=== PATIENT | female | born 1985 | race Caucasian/White ===

== ENCOUNTER → 2017-04-10 | Emergency (ER) | payer OTHER ==
[~2017-04-10] VITALS: Ht 172.7 cm; Wt 98.0 kg
[~2017-04-10] MED LIST: BUDESONIDE0.5 MG/2 M IH; IBUPROFEN800 MG PO; IPRAT-ALBUT 0.5-3 ML IH; LEVOTHYROXINE50 MCG PO; LEVOXYL50 MCG; MEDROLPACK PO; MOTRIN800 MG PO; OMEPRAZOLE20 MG PO; PERIDEX480 ML MM; PRILOSEC20 MG PO; TUSSI PRES-B L120 M1 PO; ZITHROMAX TRI-500 MG PO; ZOFRAN4 MG PO
== END | disposition home or self-care (01) ==
LOC: ER 00:35
DX: J45.998 Other asthma (principal); J06.9 Acute upper respiratory infection, unspecified; R00.2 Palpitations

== ENCOUNTER → 2017-04-18 | Emergency (ER) | payer OTHER ==
[~2017-04-18] VITALS: Ht 170.2 cm; Wt 77.1 kg
[~2017-04-18] MED LIST changes: +CYCLOBENZAPRINE10 MG PO; +KETO10TA2 PO; +ORPHENADRINE C100 MG PO
== END | disposition home or self-care (01) ==
LOC: ER 01:35
DX: M94.0 Chondrocostal junction syndrome [Tietze] (principal)

== ENCOUNTER 2017-10-15 07:35 | Emergency (ER) | payer OTHER ==
[~2017-10-15] VITALS: Ht 172.7 cm; Wt 113.4 kg
== END 2017-10-15 11:30 | disposition home or self-care (01) ==
LOC: ER 07:35
DX: J22 Unspecified acute lower respiratory infection (principal)

== ENCOUNTER 2018-04-30 20:30 | Emergency (ER) | payer OTHER ==
[~2018-04-30] VITALS: Ht 167.6 cm; Wt 109.8 kg
== END 2018-04-30 22:43 | disposition home or self-care (01) ==
LOC: ER 20:30
DX: R63.0 Anorexia (principal)

== ENCOUNTER 2018-07-06 18:11 | Emergency (ER) | payer OTHER ==
[~2018-07-06] VITALS: Ht 172.7 cm; Wt 106.6 kg
[2018-07-06] MEDS ORDERED: PANADOL EXTRA500 MG (18:31)
== END 2018-07-06 22:39 | disposition home or self-care (01) ==
LOC: ER 18:11
DX: B34.9 Viral infection, unspecified (principal); E86.0 Dehydration; R50.9 Fever, unspecified

== ENCOUNTER 2018-07-09 09:27 | Emergency (ER) | payer OTHER ==
[~2018-07-09] VITALS: Ht 152.4 cm; Wt 108.9 kg
[~2018-07-09 09:27] MED LIST changes: +PANADOL EXTRA500 MG
[2018-07-09] MEDS ORDERED: ALBUTEROL1.25 MG/3 (10:43)
[2018-07-09] MEDS ORDERED: BUDEO.25 (10:43)
== END 2018-07-09 13:08 | disposition home or self-care (01) ==
LOC: ER 09:27
DX: J06.9 Acute upper respiratory infection, unspecified (principal)

== ENCOUNTER 2018-11-15 13:41 | Emergency (ER) | payer OTHER ==
[~2018-11-15] VITALS: Ht 172.7 cm; Wt 111.1 kg
[~2018-11-15 13:41] MED LIST changes: +ALBUTEROL1.25 MG/3; +BUDEO.25
== END 2018-11-15 18:05 | disposition home or self-care (01) ==
LOC: ER 13:41
DX: L02.224 Furuncle of groin (principal)

== ENCOUNTER 2019-02-13 09:49 | Emergency (ER) | payer OTHER ==
[~2019-02-13] VITALS: Ht 172.7 cm; Wt 108.9 kg
[2019-02-13] MEDS ORDERED: MEDROLPACK PO (12:10)
[2019-02-13] MEDS ORDERED: ZITHROMAX500 MG PO (12:10)
[2019-02-13] MEDS ORDERED: TUSSI PRES-B L480 ML PO (12:10)
== END 2019-02-13 12:47 | disposition home or self-care (01) ==
LOC: ER 09:49
DX: B33.8 Other specified viral diseases (principal); B96.0 Mycoplasma pneumoniae [M. pneumoniae] as the cause of diseases classified elsewhere

== ENCOUNTER 2020-04-01 12:38 | Emergency (ER) | payer OTHER ==
[~2020-04-01] VITALS: Ht 172.7 cm; Wt 86.2 kg
[~2020-04-01 12:38] MED LIST changes: +TUSSI PRES-B L480 ML PO; +ZITHROMAX500 MG PO
[2020-04-01] MEDS ORDERED: CIPRO500 MG PO (18:26)
== END 2020-04-01 18:53 | disposition home or self-care (01) ==
LOC: ER 12:38
DX: N20.0 Calculus of kidney (principal); N83.291 Other ovarian cyst, right side; R10.31 Right lower quadrant pain

== ENCOUNTER 2020-07-03 19:21 | Emergency (ER) | payer OTHER ==
[~2020-07-03] VITALS: Ht 172.7 cm; Wt 120.2 kg
[~2020-07-03 19:21] MED LIST changes: +CIPRO500 MG PO
[2020-07-03] MEDS ORDERED: NABUMETONE750 MG PO (23:23)
== END 2020-07-04 00:35 | disposition home or self-care (01) ==
LOC: ER 19:21
DX: N83.291 Other ovarian cyst, right side (principal); R10.2 Pelvic and perineal pain

== ENCOUNTER 2020-07-22 12:16 | Emergency (ER) | payer OTHER ==
[~2020-07-22] VITALS: Ht 172.7 cm; Wt 122.5 kg
[~2020-07-22 12:16] MED LIST changes: +NABUMETONE750 MG PO
== END 2020-07-22 13:45 | disposition home or self-care (01) ==
LOC: ER 12:16
DX: K13.79 Other lesions of oral mucosa (principal)

== ENCOUNTER 2020-10-07 17:35 | Emergency (ER) | payer OTHER ==
[~2020-10-07] VITALS: Ht 172.7 cm; Wt 127.0 kg
[2020-10-07] MEDS ORDERED: PERCOCET 5-3251 EACH PO (22:10)
== END 2020-10-07 22:22 | disposition home or self-care (01) ==
LOC: ER 17:35
DX: K08.89 Other specified disorders of teeth and supporting structures (principal)

== ENCOUNTER 2020-11-28 14:50 | Emergency (ER) | payer OTHER ==
[~2020-11-28] VITALS: Ht 172.7 cm; Wt 117.9 kg
[~2020-11-28 14:50] MED LIST changes: +PERCOCET 5-3251 EACH PO
[2020-11-28] MEDS ORDERED: BACTRIM DS TAB1 EACH PO (19:37)
== END 2020-11-28 20:05 | disposition home or self-care (01) ==
LOC: ER 14:50
DX: N39.0 Urinary tract infection, site not specified (principal); B96.29 Other Escherichia coli [E. coli] as the cause of diseases classified elsewhere

== ENCOUNTER 2021-01-17 16:37 | Emergency (ER) | payer OTHER ==
[~2021-01-17] VITALS: Ht 172.7 cm; Wt 117.9 kg
[~2021-01-17 16:37] MED LIST changes: +BACTRIM DS TAB1 EACH PO
[2021-01-17] MEDS ORDERED: NABUMETONE750 MG PO (18:29)
== END 2021-01-17 18:31 | disposition home or self-care (01) ==
LOC: ER 16:37
DX: M94.0 Chondrocostal junction syndrome [Tietze] (principal)

== ENCOUNTER 2021-02-01 22:38 | Emergency (ER) | payer OTHER ==
[~2021-02-01] VITALS: Ht 172.7 cm; Wt 129.3 kg
[2021-02-01] MEDS ORDERED: NAPROXEN SODIU275 MG PO (23:44)
== END 2021-02-02 01:01 | disposition home or self-care (01) ==
LOC: ER 22:38
DX: M25.562 Pain in left knee (principal); M19.90 Unspecified osteoarthritis, unspecified site

== ENCOUNTER 2021-02-17 11:52 | Emergency (ER) | payer OTHER ==
[~2021-02-17] VITALS: Ht 172.7 cm; Wt 129.3 kg
[~2021-02-17 11:52] MED LIST changes: +NAPROXEN SODIU275 MG PO
[2021-02-17] MEDS ORDERED: PEPCID AC20 MG PO (16:53)
[2021-02-17] MEDS ORDERED: INTESTINEX680 M1 PO (16:53)
== END 2021-02-17 18:01 ==
LOC: ER 11:52
DX: K52.89 Other specified noninfective gastroenteritis and colitis (principal); E86.0 Dehydration; Z20.822 Contact with and (suspected) exposure to COVID-19

== ENCOUNTER 2021-03-31 16:35 | Emergency (ER) | payer OTHER ==
[~2021-03-31] VITALS: Ht 172.7 cm; Wt 127.0 kg
[~2021-03-31 16:35] MED LIST changes: +INTESTINEX680 M1 PO; +PEPCID AC20 MG PO
[2021-03-31] MEDS ORDERED: BUTALB-ACETAMI1 EAC2 PO (18:22)
== END 2021-03-31 18:31 | disposition home or self-care (01) ==
LOC: ER 16:35
DX: R51.9 Headache, unspecified (principal)

== ENCOUNTER 2021-05-27 23:32 | Emergency (ER) | payer OTHER ==
[~2021-05-27] VITALS: Ht 172.7 cm; Wt 122.5 kg
[~2021-05-27 23:32] MED LIST changes: +BUTALB-ACETAMI1 EAC2 PO
[2021-05-28] MEDS ORDERED: ZOFRAN8 MG PO (07:39)
[2021-05-28] MEDS ORDERED: PEPCID40 MG PO (07:39)
== END 2021-05-28 07:42 ==
LOC: ER 23:32
DX: R11.10 Vomiting, unspecified (principal)

== ENCOUNTER 2021-06-18 11:57 | Emergency (ER) | payer OTHER ==
[~2021-06-18] VITALS: Ht 172.7 cm; Wt 122.5 kg
[~2021-06-18 11:57] MED LIST changes: +PEPCID40 MG PO; +ZOFRAN8 MG PO
[2021-06-18] MEDS ORDERED: PEPCID AC20 MG PO (17:59)
[2021-06-18] MEDS ORDERED: CARAFATE1 GM PO (17:59)
== END 2021-06-18 18:35 | disposition home or self-care (01) ==
LOC: ER 11:57
DX: R10.84 Generalized abdominal pain (principal); I10 Essential (primary) hypertension; Z72.0 Tobacco use

== ENCOUNTER 2021-10-21 10:17 | Emergency (ER) | payer OTHER | END 2021-10-21 13:35 | disposition home or self-care (01) | LOC: ER 10:17 | DX: G43.909 Migraine, unspecified, not intractable, without status migrainosus (principal); M62.838 Other muscle spasm ==

== ENCOUNTER 2021-10-23 12:28 | Emergency (ER) | payer OTHER ==
[~2021-10-23] VITALS: Ht 172.7 cm; Wt 122.9 kg
[~2021-10-23 12:28] MED LIST changes: +BENADRYL25 MG PO; +CARAFATE1 GM PO
== END 2021-10-23 16:13 | disposition home or self-care (01) ==
LOC: ER 12:28
DX: J22 Unspecified acute lower respiratory infection (principal); B34.9 Viral infection, unspecified; Z20.822 Contact with and (suspected) exposure to COVID-19

== ENCOUNTER → 2022-03-19 | Emergency (ER) | payer OTHER ==
[~2022-03-19] VITALS: Ht 160 cm; Wt 127.0 kg
== END | disposition home or self-care (01) ==
LOC: ER 14:43
DX: G43.909 Migraine, unspecified, not intractable, without status migrainosus (principal); F45.41 Pain disorder exclusively related to psychological factors; Z20.822 Contact with and (suspected) exposure to COVID-19

== ENCOUNTER 2022-08-10 08:50 | Emergency (ER) | payer OTHER ==
[~2022-08-10] VITALS: Ht 172.7 cm; Wt 128.4 kg
== END 2022-08-10 14:11 | disposition home or self-care (01) ==
LOC: ER 08:50
DX: K52.9 Noninfective gastroenteritis and colitis, unspecified (principal); N39.0 Urinary tract infection, site not specified; Z20.822 Contact with and (suspected) exposure to COVID-19; E07.89 Other specified disorders of thyroid

== ENCOUNTER → 2022-10-24 | Emergency (ER) | payer OTHER ==
[~2022-10-24] VITALS: Ht 172.7 cm; Wt 127.0 kg
== END | disposition home or self-care (01) ==
LOC: ER 15:36
DX: K29.70 Gastritis, unspecified, without bleeding (principal); F41.9 Anxiety disorder, unspecified

== ENCOUNTER 2022-10-29 16:18 | Emergency (ER) | payer OTHER ==
[~2022-10-29] VITALS: Ht 172.7 cm; Wt 127.0 kg
[2022-10-29] MEDS ORDERED: ADVIL DUAL ACT1 EACH PO (18:46)
[2022-10-29] MEDS ORDERED: METAXALONE800 MG PO (18:46)
== END 2022-10-29 18:50 | disposition home or self-care (01) ==
LOC: ER 16:18
DX: M94.0 Chondrocostal junction syndrome [Tietze] (principal); E03.8 Other specified hypothyroidism

== ENCOUNTER 2022-12-01 14:52 | Emergency (ER) | payer OTHER ==
[~2022-12-01] VITALS: Ht 172.7 cm; Wt 127.0 kg
[~2022-12-01 14:52] MED LIST changes: +ADVIL DUAL ACT1 EACH PO; +METAXALONE800 MG PO
[2022-12-01 16:41] LABS: HEMATOCRIT 33.1 % (36.0-45.00); HEMOGLOBIN 11.3 g/dL (12.0-15.00); MEAN CELL VOLUME 77.4 fL (80.00-100.00); MEAN CORPUSCULAR HEMOGLOBIN 26.4 pg (27.00-32.0); MEAN CORPUSCULAR HGB CONC 34.1 g/dl (32.0-36.0); PLATELET COUNT 318 K/uL (150-450); RED BLOOD COUNT 4.27 M/uL (4.00-6.00)
[2022-12-01 17:08] LABS: ALBUMIN 3.5 gm/dL (3.4-5.0); BILIRUBIN TOTAL 0.52 mg/dL (0.3-1.2); CALCIUM 8.6 mg/dL (8.5-10.1); CREATININE SERUM 0.8 mg/dL (0.55-1.02); GFR 80.71; GLOBULINA 3.8 G/DL (2.4-3.5); POTASSIUM 3.25 mEq/L (3.5-5.1); TOTAL PROTEIN 7.3 gm/dL (6.4-8.2)
== END 2022-12-01 21:18 | disposition home or self-care (01) ==
LOC: ER 14:52
PROVIDERS: General Practice
DX: K52.9 Noninfective gastroenteritis and colitis, unspecified (principal)

== ENCOUNTER 2022-12-11 21:45 | Emergency (ER) | payer OTHER ==
[~2022-12-11] VITALS: Ht 172.7 cm; Wt 131.5 kg
[2022-12-11] MEDS ORDERED: CIPRO500 MG PO (22:46)
== END 2022-12-11 22:49 | disposition home or self-care (01) ==
LOC: ER 21:45
DX: S61.213A Laceration without foreign body of left middle finger without damage to nail, initial encounter (principal); W26.0XXA Contact with knife, initial encounter; Y93.G3 Activity, cooking and baking; Y92.9 Unspecified place or not applicable; Y99.9 Unspecified external cause status

== ENCOUNTER 2023-02-11 12:54 | Emergency (ER) | payer OTHER ==
[~2023-02-11] VITALS: Ht 172.7 cm; Wt 131.5 kg
== END 2023-02-11 14:17 | disposition home or self-care (01) ==
LOC: ER 12:55
DX: G43.809 Other migraine, not intractable, without status migrainosus (principal)

== ENCOUNTER 2023-04-19 11:50 | Emergency (ER) | payer OTHER ==
[~2023-04-19] VITALS: Ht 172.7 cm; Wt 131.5 kg
[2023-04-19] MEDS ORDERED: GENTAMICIN SULFATE 0.15 MG/DR DROPS 5ML OP STA (13:53)
[2023-04-19] MEDS ORDERED: GUAIFENESIN 200 MG/10 ML BLIST.PACK PO STA (14:03)
== END 2023-04-19 15:30 | disposition home or self-care (01) ==
LOC: ER 11:50
DX: R05.9 Cough, unspecified (principal); Z20.822 Contact with and (suspected) exposure to COVID-19

== ENCOUNTER 2023-09-01 12:49 | Emergency (ER) | payer OTHER ==
[~2023-09-01] VITALS: Ht 172.7 cm; Wt 136.1 kg
[2023-09-01] MEDS ORDERED: hydrOXYzine PAMOATE 50 MG CAPSULE PO ONE (15:00)
[2023-09-01] MEDS ORDERED: VISTARIL25 MG PO ×2 (16:01→16:02)
== END 2023-09-01 16:31 ==
LOC: ER 12:49
DX: F41.9 Anxiety disorder, unspecified (principal); E03.9 Hypothyroidism, unspecified; Z88.8 Allergy status to other drugs, medicaments and biological substances; Z87.09 Personal history of other diseases of the respiratory system; R00.2 Palpitations

== ENCOUNTER 2023-11-23 12:08 | Emergency (ER) | payer OTHER ==
[~2023-11-23] VITALS: Ht 172.7 cm; Wt 140.6 kg
[~2023-11-23 12:08] MED LIST changes: +VISTARIL25 MG PO
[2023-11-23] MEDS ORDERED: KETOROLAC TROMETHAMINE 60 MG VIAL IM STA (13:45)
== END 2023-11-23 15:27 | disposition home or self-care (01) ==
LOC: ER 12:10
DX: M25.562 Pain in left knee (principal); M25.561 Pain in right knee; W18.30XA Fall on same level, unspecified, initial encounter; Y93.9 Activity, unspecified; Y92.9 Unspecified place or not applicable; Y99.9 Unspecified external cause status

== ENCOUNTER 2023-12-09 23:40 | Emergency (ER) | payer OTHER ==
[~2023-12-09] VITALS: Ht 172.7 cm; Wt 140.6 kg
[2023-12-10] MEDS ORDERED: HALOPERIDOL LACTATE 5 MG/ML AMPUL IM STA (01:11)
[2023-12-10] MEDS ORDERED: KETOROLAC TROMETHAMINE 30 MG VIAL IV STA (01:11)
[2023-12-10] MEDS ORDERED: DIPHENHYDRAMINE HCL 50 MG/ML VIAL 1ML IM STA (01:12)
== END 2023-12-10 02:02 | disposition home or self-care (01) ==
LOC: ER 23:42
DX: G43.829 Menstrual migraine, not intractable, without status migrainosus (principal); Z88.8 Allergy status to other drugs, medicaments and biological substances

== ENCOUNTER 2023-12-25 13:42 | Emergency (ER) | payer OTHER ==
[~2023-12-25] VITALS: Ht 172.7 cm; Wt 140.6 kg
[2023-12-25] MEDS ORDERED: ONDANSETRON HCL 2 MG/ML VIAL IV ONE (14:45)
[2023-12-25] MEDS ORDERED: LACTOBACILLUS ACIDOPHILUS 1 CAP CAP PO ONE (14:45)
[2023-12-25] MEDS ORDERED: 0.9 % SODIUM CHLORIDE 500 ML IV ONE (14:45)
[2023-12-25] MEDS ORDERED: FAMOTIDINE/PF 20 MG/2 ML VIAL IV ONE (14:45)
[2023-12-25] MEDS ORDERED: ACETAMINOPHEN 500 MG GEL..CAP PO ONE (14:45)
[2023-12-25 15:37] LABS: URINE APPEARANCE Clear; URINE BILIRRUBIN Negative (NEGATIVE); URINE BLOOD Negative; URINE COLOR Yellow; URINE GLUCOSE Negative (NEGATIVE); URINE KETONE Negative (NEGATIVE); URINE LEUKOCYTE Trace; URINE NITRATE Negative; URINE PROTEIN Negative (NEGATIVE); URINE UROBILINOGEN 0.2 E.U./dl
[2023-12-25 15:41] LABS: URINE BACTERIA 2174.4 uL (0.0-1933); URINE EPITHELIAL CELLS 34.3 uL (0.0-38.8); URINE RBC 2.2 uL (0.0-20.8); URINE WBC 21.4 uL (0.0-23.2)
[2023-12-25 15:51] LABS: HEMATOCRIT 35.1 % (36.0-45.00); HEMOGLOBIN 11.5 g/dL (12.0-15.00); MEAN CELL VOLUME 75.5 fL (80.00-100.00); MEAN CORPUSCULAR HEMOGLOBIN 24.7 pg (27.00-32.0); MEAN CORPUSCULAR HGB CONC 32.7 g/dl (32.0-36.0); PLATELET COUNT 344 K/uL (150-450); RED BLOOD COUNT 4.64 M/uL (4.00-6.00); RED CELL DISTRIBUTION WIDTH 16.5 % (11.5-14.5)
[2023-12-25 16:05] LABS: ALBUMIN 3.8 gm/dL (3.4-5.0); BILIRUBIN TOTAL 0.42 mg/dL (0.3-1.2); CALCIUM 8.9 mg/dL (8.5-10.1); CREATININE SERUM 0.72 mg/dL (0.55-1.02); GFR 90.65; GLOBULINA 4.1 G/DL (2.4-3.5); POTASSIUM 3.92 mEq/L (3.5-5.1); TOTAL PROTEIN 7.9 gm/dL (6.4-8.2)
[2023-12-25] MEDS ORDERED: PIPERACILLIN/TAZOBACTAM SODIUM 3.375 GM VIAL IV ONE (21:15)
[2023-12-25] MEDS ORDERED: LEVSIN0.125 MG PO (21:24)
[2023-12-25] MEDS ORDERED: PROTONIX20 MG PO (21:24)
[2023-12-25] MEDS ORDERED: INTESTINEX680 M1 PO (21:24)
[2023-12-25] MEDS ORDERED: METRONIDAZOLE500 MG PO (21:33)
== END 2023-12-25 23:50 | disposition home or self-care (01) ==
LOC: ER 13:43
PROVIDERS: Nurse Practitioner Family
DX: K52.9 Noninfective gastroenteritis and colitis, unspecified (principal); R10.2 Pelvic and perineal pain; E03.8 Other specified hypothyroidism; Z88.1 Allergy status to other antibiotic agents
CPT/HCPCS: 36415; 74177; Q9965

== ENCOUNTER 2024-02-16 23:22 | Emergency (ER) | payer OTHER ==
[~2024-02-16] VITALS: Ht 170.2 cm; Wt 127.0 kg
[~2024-02-16 23:22] MED LIST changes: +LEVSIN0.125 MG PO; +METRONIDAZOLE500 MG PO; +PROTONIX20 MG PO
[2024-02-17] MEDS ORDERED: KETOROLAC TROMETHAMINE 60 MG VIAL IM STA (00:50)
[2024-02-17] MEDS ORDERED: DOLOGESIC-DF 51 EACH PO (03:03)
[2024-02-17] MEDS ORDERED: ZYNCOF 20-400120 ML PO (03:03)
[2024-02-17] MEDS ORDERED: PHENAGIL TABLE1 EACH PO (03:03)
== END 2024-02-17 03:22 | disposition home or self-care (01) ==
LOC: ER 23:25
DX: J06.9 Acute upper respiratory infection, unspecified (principal); M94.0 Chondrocostal junction syndrome [Tietze]; Z88.8 Allergy status to other drugs, medicaments and biological substances; Z20.822 Contact with and (suspected) exposure to COVID-19

== ENCOUNTER 2024-05-12 11:22 | Emergency (ER) | payer OTHER ==
[~2024-05-12] VITALS: Ht 172.7 cm; Wt 136.1 kg
[~2024-05-12 11:22] MED LIST changes: +DOLOGESIC-DF 51 EACH PO; +PHENAGIL TABLE1 EACH PO; +ZYNCOF 20-400120 ML PO
[2024-05-12] MEDS ORDERED: 0.9 % SODIUM CHLORIDE 1,000 ML IV STA (12:02)
[2024-05-12 13:23] LABS: HEMATOCRIT 35.7 % (36.0-45.00); HEMOGLOBIN 11.6 g/dL (12.0-15.00); MEAN CELL VOLUME 74.7 fL (80.00-100.00); MEAN CORPUSCULAR HEMOGLOBIN 24.3 pg (27.00-32.0); MEAN CORPUSCULAR HGB CONC 32.6 g/dl (32.0-36.0); PLATELET COUNT 379 K/uL (150-450); RED BLOOD COUNT 4.78 M/uL (4.00-6.00); RED CELL DISTRIBUTION WIDTH 16.4 % (11.5-14.5)
[2024-05-12 14:07] LABS: CALCIUM 9.3 mg/dL (8.5-10.1); CREATININE SERUM 0.64 mg/dL (0.55-1.02); GFR 103.85; POTASSIUM 4.12 mEq/L (3.5-5.1)
[2024-05-12 15:23] LABS: URINE APPEARANCE Clear; URINE BILIRRUBIN Negative (NEGATIVE); URINE BLOOD Negative; URINE COLOR Yellow; URINE GLUCOSE Negative (NEGATIVE); URINE KETONE Negative (NEGATIVE); URINE LEUKOCYTE Negative; URINE NITRATE Negative; URINE PROTEIN Negative (NEGATIVE); URINE UROBILINOGEN 0.2 E.U./dl
[2024-05-12 15:28] LABS: URINE BACTERIA 6051.2 uL (0.0-1933); URINE EPITHELIAL CELLS 67.7 uL (0.0-38.8); URINE RBC 6.1 uL (0.0-20.8); URINE WBC 38.6 uL (0.0-23.2)
[2024-05-12 15:35] LABS: URINE CAST 0.58 uL (0.0-1.40)
[2024-05-12] MEDS ORDERED: ANALPRAM HC 2.530 GM RECTAL (17:40)
== END 2024-05-12 17:49 | disposition home or self-care (01) ==
LOC: ER 11:25
PROVIDERS: Emergency Medicine
DX: K64.9 Unspecified hemorrhoids (principal); Z88.1 Allergy status to other antibiotic agents
CPT/HCPCS: 36415; 74177; Q9965

== ENCOUNTER 2024-10-16 16:14 | Emergency (ER) | payer OTHER ==
[~2024-10-16] VITALS: Ht 172.7 cm; Wt 117.9 kg
[~2024-10-16 16:14] MED LIST changes: +ANALPRAM HC 2.530 GM RECTAL
[2024-10-16] MEDS ORDERED: KETOROLAC TROMETHAMINE 15 MG VIAL IV STA (18:45)
[2024-10-16] MEDS ORDERED: ONDANSETRON HCL 2 MG/ML VIAL IV STA (18:45)
[2024-10-16] MEDS ORDERED: SODIUM CHLORIDE 0.45 % 1,000 ML IV STA (18:49)
[2024-10-16] MEDS ORDERED: FAMOTIDINE/PF 20 MG/2 ML VIAL IV PUSH STA (18:49)
[2024-10-16 19:44] LABS: BASO % 0.7 % (0.1-1.2); EOS # 0.19 (0.04-0.54); EOS % 2.1 % (0.7-7.0); LYMPH # 3.43 (1.18-3.74); LYMPH % 38.4 % (19.3-53.1); MEAN PLATELET VOLUME 9.20 fl (9.4-12.4); MONO # 0.63 (0.24-0.82); MONO % 7.1 % (4.7-12.5); NEUT # 4.59 (1.56-6.13); NEUT % 51.4 % (34.0-71.1); RED CELL DISTRIBUTION WIDTH 15.3 % (11.6-14.4)
[2024-10-16 20:13] LABS: BUN CREA RATIO 17.0 (7.0-25.0); CREATININE SERUM 0.53 mg/dL (0.55-1.02); GFR 128.42; GLUCOSE FASTING 87.0 mg/dL (65-100); OSMOLALITY SERUM 279.0 MOSM/KG (275-295)
== END 2024-10-16 21:55 | disposition home or self-care (01) ==
LOC: ER 16:14
PROVIDERS: Emergency Medicine
DX: G43.909 Migraine, unspecified, not intractable, without status migrainosus (principal); Z88.8 Allergy status to other drugs, medicaments and biological substances

== ENCOUNTER 2024-12-12 03:33 | Emergency (ER) | payer OTHER ==
[~2024-12-12] VITALS: Ht 165.1 cm; Wt 136.1 kg
[2024-12-12] MEDS ORDERED: CEFTRIAXONE SODIUM 1,000 MG VIAL IV ONE (03:45)
[2024-12-12] MEDS ORDERED: FAMOtidine 10 MG/ML (4ML VIAL) IV ONE (03:45)
[2024-12-12] MEDS ORDERED: ONDANSETRON HCL 2 MG/ML VIAL IV ONE (03:45)
[2024-12-12] MEDS ORDERED: KETOROLAC TROMETHAMINE 30 MG VIAL ONE ×2 (03:55→09:54)
[2024-12-12] MEDS ORDERED: TAMSULOSIN HCL 0.4 MG CAP PO ONE ×2 (03:55→04:00)
[2024-12-12] MEDS ORDERED: ONDANSETRON HCL 2 MG/ML VIAL ONE (03:55)
[2024-12-12] MEDS ORDERED: CEFTRIAXONE SODIUM 1,000 MG VIAL ONE (03:56)
[2024-12-12] MEDS ORDERED: FAMOTIDINE/PF 20 MG/2 ML VIAL ONE (03:56)
[2024-12-12] MEDS ORDERED: 0.9 % SODIUM CHLORIDE 1,000 ML IV ONE (04:00)
[2024-12-12] MEDS ORDERED: KETOROLAC TROMETHAMINE 30 MG VIAL IV ONE (04:00)
[2024-12-12 04:29] LABS: BASO % 0.7 % (0.1-1.2); EOS # 0.16 (0.04-0.54); EOS % 1.6 % (0.7-7.0); LYMPH # 3.16 (1.18-3.74); LYMPH % 31.6 % (19.3-53.1); MEAN PLATELET VOLUME 9.70 fl (9.4-12.4); MONO # 0.83 (0.24-0.82); MONO % 8.3 % (4.7-12.5); NEUT # 5.76 (1.56-6.13); NEUT % 57.6 % (34.0-71.1); RED CELL DISTRIBUTION WIDTH 15.7 % (11.6-14.4)
[2024-12-12 04:43] LABS: INR 0.98
[2024-12-12 04:50] LABS: ALT/SGPT 21 U/L (12-78); AST/SGOT 18 U/L (15-37); BILIRUBIN TOTAL 0.32 mg/dL (0.3-1.2); BUN CREA RATIO 14 (7.0-25.0); CREATININE SERUM 0.93 mg/dL (0.55-1.02); GFR 67.12; GLOBULINA 3.1 G/DL (2.4-3.5); GLUCOSE FASTING 168 mg/dL (65-100); OSMOLALITY SERUM 287 MOSM/KG (275-295)
[2024-12-12 04:51] LABS: HCG QUANTITATIVE < 1 mUI/mL (1-3)
[2024-12-12 07:34] VITALS: BP 136/75; O2SAT 100
[2024-12-12] MEDS ORDERED: KETO10TA2 PO (09:34)
[2024-12-12] MEDS ORDERED: TAMS0.4C PO (09:34)
[2024-12-12] MEDS ORDERED: MACROBID 100 M100 MG PO (09:34)
[2024-12-12] MEDS ORDERED: PYRIDIUM200 MG PO (09:34)
[2024-12-12] MEDS ORDERED: KETOROLAC TROMETHAMINE 15 MG VIAL IV ONE (10:00)
== END 2024-12-12 10:09 | disposition home or self-care (01) ==
LOC: ER 03:33
PROVIDERS: General Practice
DX: R10.A2 Flank pain, left side (principal); E03.8 Other specified hypothyroidism; E11.9 Type 2 diabetes mellitus without complications; Z88.1 Allergy status to other antibiotic agents; J45.909 Unspecified asthma, uncomplicated

== ENCOUNTER 2025-02-04 08:00 | Emergency (ER) | payer OTHER ==
[~2025-02-04] VITALS: Ht 172.7 cm; Wt 127.0 kg
[~2025-02-04 08:00] MED LIST changes: +MACROBID 100 M100 MG PO; +PYRIDIUM200 MG PO; +TAMS0.4C PO
[2025-02-04] MEDS ORDERED: ORPHENADRINE CITRATE 30 MG/ML AMPUL IM ONE (08:30)
[2025-02-04] MEDS ORDERED: DEXAMETHASONE SODIUM PHOSPHATE 4 MG/ML VIAL IM ONE (08:30)
[2025-02-04] MEDS ORDERED: KETOROLAC TROMETHAMINE 30 MG VIAL IM ONE (08:30)
[2025-02-04] MEDS ORDERED: KETOROLAC TROMETHAMINE 30 MG VIAL ONE (08:33)
[2025-02-04] MEDS ORDERED: ORPHENADRINE CITRATE 30 MG/ML AMPUL ONE (08:33)
[2025-02-04] MEDS ORDERED: DEXAMETHASONE SODIUM PHOSPHATE 4 MG/ML VIAL ONE (08:34)
[2025-02-04] MEDS ORDERED: LIDODERM1 EACH TOP (10:05)
[2025-02-04] MEDS ORDERED: NORFLEX100MG PO (10:05)
[2025-02-04] MEDS ORDERED: KETO10TA2 PO (10:05)
[2025-02-04] MEDS ORDERED: MEDROLPACK PO (10:05)
== END 2025-02-04 10:21 | disposition home or self-care (01) ==
LOC: ER 08:00
DX: M62.838 Other muscle spasm (principal); M54.2 Cervicalgia; E16.1 Other hypoglycemia; E03.8 Other specified hypothyroidism; Z88.1 Allergy status to other antibiotic agents